=== PATIENT | male | born 1985 | race Caucasian/White ===

== ENCOUNTER 2020-04-20 19:34 | Inpatient (IN) | payer OTHER, SELFPAY ==
[~2020-04-20] VITALS: Ht 172.7 cm; Wt 90.7 kg
--- NOTE | 2020-04-20 19:45 | NUR ---
Patient to ER bed 8 to gown for evaluation. Side rails up.
[2020-04-20 19:48] VITALS: BP_SYST 99
[2020-04-20] MEDS ORDERED: IBUPROFEN 800 MG TABLET PO ONE (20:00)
[2020-04-20] MEDS ORDERED: NS 1000 ML IV.SOLN IV ONE (20:00)
[2020-04-20] MEDS ORDERED: VANCOMYCIN HCL 1,000 MG in D5W 250 ML IV ONE (20:00)
[2020-04-20] MEDS ORDERED: PIPERACILLIN/TAZO 3.38 GM in D5W 50 ML IV ONE (20:00)
--- NOTE | 2020-04-20 20:00 | NUR ---
Dr. Salazar bedside for pt eval
--- NOTE | 2020-04-20 20:10 | NUR ---
Pt BIB family to ED seeking evaluation of tachycardia today. The patient reports he had dysuria and hematuria since yesterday and took his girlfriend's UTI medications. The patient reportedly took 2 100mg tabs of Macrobid before feeling heart palpitations. Otherwise, denies fever, chills, chest pain, shortness of breath, or any other complaints
[2020-04-20 20:11] LABS: BASOPHILS % (AUTO) 0.2 % (0.0-2.0); EOSINOPHILS # (AUTO) 0.1 K/uL (0.0-0.4); EOSINOPHILS % (AUTO) 1.2 % (0.0-4.0); HEMATOCRIT 45.3 % (36-54); HEMOGLOBIN 15.5 g/dL (14.0-18.0); LYMPHOCYTES # (AUTO) 2.4 K/uL (1.0-5.5); LYMPHOCYTES % (AUTO) 19.4 % (20.5-51.5); MEAN CORPUSCULAR HEMOGLOBIN 31 pg (27-31); MEAN CORPUSCULAR HGB CONC 34 % (32-36); MEAN CORPUSCULAR VOLUME 90 fL (79.0-98.0); MONOCYTES # (AUTO) 0.2 K/uL (0.0-1.0); MONOCYTES % (AUTO) 1.8 % (1.7-9.3); NEUTROPHILS # (AUTO) 9.4 K/uL (1.8-7.7); NEUTROPHILS % (AUTO) 77.4 % (40.0-70.0); PLATELET COUNT (AUTO) 155 K/uL (130-430); RED BLOOD CELL COUNT(AUTO) 5.01 MIL/uL (4.2-6.2); RED CELL DISTRIBUTION WIDTH 12.7 % (9.0-15.0); WHITE BLOOD COUNT (AUTO) 12.1 K/uL (4.8-10.8)
[2020-04-20 20:24] LABS: CALCIUM 8.6 mg/dL (8.4-11.0); CREATININE 1.76 mg/dL (0.55-1.30); POTASSIUM 3.8 mmol/L (3.5-5.1)
[2020-04-20] MEDS ORDERED: PIPERACILLIN/TAZOBACTAM 3.375 GM/VIAL (ZOSYN) IV ONE (20:24)
[2020-04-20 20:30] LABS: ALBUMIN 4.3 g/dL (3.4-4.8); TOTAL BILIRUBIN 1.2 mg/dL (0.0-1.0)
[2020-04-20] MEDS ORDERED: VANCOMYCIN HCL 1000 MG/VIAL IV ONE (20:33)
[2020-04-20 20:34] LABS: PROTHROMBIN TIME 10.4 SECS (9.5-12.5)
[2020-04-20 21:01] LABS: BILIRUBIN,URINE NEGATIVE (NEGATIVE); BLOOD, URINE 2+ (NEGATIVE); COLOR,URINE YELLOW (YELLOW); GLUCOSE,URINE NEGATIVE (NEGATIVE); KETONES,URINE NEGATIVE (NEGATIVE); LEUKOCYTE ESTERASE ,URINE 2+ (NEGATIVE); NITRITE, URINE NEGATIVE (NEGATIVE); PROTEIN URINE TRACE (NEGATIVE); UROBILINOGEN,URINE 0.2 (0.2-1.0)
--- NOTE | 2020-04-20 21:10 | NUR ---
updated pt's family in waiting area outside, Pt remains trending towards less and less tachycardic
[2020-04-20 21:22] LABS: CLARITY/URINE SLIGHTLY HAZY (CLEAR)
[2020-04-20 21:29] LABS: BACTERIA,URINE FEW /HPF (None Seen); WBC,URINE 20-50 /HPF (0-3)
--- NOTE | 2020-04-20 22:00 | NUR ---
Dr. Salazar bedside once again for pt update
[2020-04-20] MEDS ORDERED: LORazepam 2 MG/ML VIAL IVP PRN (23:45)
[2020-04-20] MEDS ORDERED: ONDANSETRON HCL 4 MG/2 ML VIAL IVP PRN (23:45)
--- NOTE | 2020-04-20 23:50 | NUR ---
ADMIT NOTE Received pt from ER to the floor with a diagnosis of SEPSIS. Admission process initiated. patient oriented to pain management, safety and call light-teach back done.
--- NOTE | 2020-04-20 23:50 | NUR ---
Patient will be admitted to care of Dr. Palomares. Admitted to Tele unit. Will go to room 121. Belongings list completed. Complete and up to date summary report printed. SBAR report to be given at bedside with opportunity for questions.
--- NOTE | 2020-04-20 23:50 | NUR ---
Transfer to TELE via ACLS protocol. Licensed nurse present. IV present no signs or symptoms of infiltration.
[2020-04-21] VITALS: BP_SYST 101
[2020-04-21] MEDS ORDERED: HYDROcodone/ACETAMIN 5-325 MG TAB (NORCO/ VICODIN) PO PRN
[2020-04-21] MEDS ORDERED: ACETAMINOPHEN 325 MG TABLET PO PRN
[2020-04-21] MEDS ORDERED: NALOXONE HCL 0.4 MG/ML AMP (NARCAN) IVP PRN
--- NOTE | 2020-04-21 | NUR ---
OPENING NOTE PATIENT AOX4. NO SIGNS OF RESPIRATORY DISTRESS AND DISCOMFORT NOTED. DENIES PAIN AND DISCOMFORT. ON ROOM AIR, TOLERATING WELL. IVF INFUSING WELL. CALL LIGHT WITHIN REACH. PATIENT WAS EDUCATED TO USE CALL LIGHT WHEN ASSISTANCE IS NEEDED, PATIENT ABLE TO VERBALIZED UNDERSTANDING. BED LOCKED AND IN LOWEST POSITION. SAFETY PRECAUTIONS IN PLACE. WILL CONTINUE TO MONITOR PATIENT
[2020-04-21] MEDS ORDERED: FLU VACC QS2020-21 (6 mos & up) 0.5 ML/SYRINGE I.M. PRN (00:15)
[2020-04-21] MEDS: NACL 0.9% 1,000 ML IV SCH ×4 (00:17→18:12)
[2020-04-21] MEDS ORDERED: PIPERACILLIN/TAZOBACTAM 3.375 GM/VIAL (ZOSYN) IV ONE (00:44)
[2020-04-21] MEDS ORDERED: cefTRIAXone 1 GM VIAL ONE (00:45)
--- NOTE | 2020-04-21 02:03 | NUR ---
RN ROUNDS PATIENT ASLEEP AT THIS TIME. NO SIGNS OF RESPIRATORY DISTRESS AND DISCOMFORT NOTED. BREATHING EVEN AND UNLABORED. IVF INFUSING WELL. CALL LIGHT WITHIN REACH. SAFETY PRECAUTIONS IN PLACE. WILL CONTINUE TO MONITOR PATIENT.
[2020-04-21] MEDS: PIPERACILLIN/TAZO 3.375/DEX-IS 50 ML IV SCH ×5 (05:17→23:48)
--- NOTE | 2020-04-21 05:56 | NUR ---
DR. GABRIEL GAN MD MADE AWARE OF PATIENTS TEMP OF 99.4. DR. RIOS VERBALIZED TO GIVE TYLENOL PER ORDER.
--- NOTE | 2020-04-21 06:43 | NUR ---
CLOSING NOTE PATIENT ASLEEP, NO SIGNS OF RESPIRATORY DISTRESS AND DISCOMFORT NOTED. BREATHING EVEN AND UNLABORED. ON ROOM AIR TOLERATING WELL. IVF INFUSING WELL. CALL LIGHT WITHIN REACH. BED LOCKED AND IN LOWEST POSITION. BED ALARM ON. SIDE RAILS UP. SAFETY PRECAUTION IN PLACE. ALL NEEDS MET THROUGHOUT THE SHIFT. WILL CONTINUE TO MONITOR PATIENT UNTIL ENDORSE TO ONCOMING SHIFT NURSE FOR CONTINUITY OF CARE.
[2020-04-21 07:30] LABS: BASOPHILS % (AUTO) 0.1 % (0.0-2.0); EOSINOPHILS # (AUTO) 0.1 K/uL (0.0-0.4); EOSINOPHILS % (AUTO) 0.5 % (0.0-4.0); HEMATOCRIT 40.9 % (36-54); HEMOGLOBIN 13.8 g/dL (14.0-18.0); LYMPHOCYTES # (AUTO) 0.6 K/uL (1.0-5.5); LYMPHOCYTES % (AUTO) 4.4 % (20.5-51.5); MEAN CORPUSCULAR HEMOGLOBIN 31 pg (27-31); MEAN CORPUSCULAR HGB CONC 34 % (32-36); MEAN CORPUSCULAR VOLUME 91 fL (79.0-98.0); MONOCYTES # (AUTO) 0.4 K/uL (0.0-1.0); MONOCYTES % (AUTO) 3.3 % (1.7-9.3); NEUTROPHILS # (AUTO) 12.1 K/uL (1.8-7.7); NEUTROPHILS % (AUTO) 91.7 % (40.0-70.0); PLATELET COUNT (AUTO) 121 K/uL (130-430); RED BLOOD CELL COUNT(AUTO) 4.48 MIL/uL (4.2-6.2); RED CELL DISTRIBUTION WIDTH 13.2 % (9.0-15.0); WHITE BLOOD COUNT (AUTO) 13.2 K/uL (4.8-10.8)
[2020-04-21 07:57] VITALS: BP_SYST 116
[2020-04-21 08:10] LABS: ALBUMIN 3.4 g/dL (3.4-4.8); CALCIUM 8.2 mg/dL (8.4-11.0); CREATININE 1.18 mg/dL (0.55-1.30); POTASSIUM 4.2 mmol/L (3.5-5.1); TOTAL BILIRUBIN 1.4 mg/dL (0.0-1.0)
[2020-04-21] MEDS: ACETAMINOPHEN 325 MG TABLET PO PRN ×2 (11:52→18:03)
--- NOTE | 2020-04-21 12:24 | NUR ---
INFECTIOUS CONSULT SPOKE TO DR RYAN AND MADE AWARE OF CONSULT RE-SEPSIS.
[2020-04-21] MEDS ORDERED: GENTAMICIN SULFATE 300 MG in NS 100 ML IV ONE (12:30)
[2020-04-21 12:33] VITALS: BP_SYST 134
[2020-04-21 16:16] VITALS: BP_SYST 103
--- NOTE | 2020-04-21 19:52 | NUR ---
NOTES, PT BP WNL, PT HAS ON AND OFF TEMPERATURE AND EPISODES OF SHIVERING, GIVEN TYLENOL PRN, ALL ANTIBIOTICS AND MEDICATIONS GIVEN ORDERED. DR RYAN SEEN AND SPOKE WITH PT. CHECKED WITH DR FINNEY IF HE WANT PLACE PT ON PUI PT IS EXHIBITING SYMPTOMS OF COVID PER ASSESSMENT, MD SAID NO NEED. ENDORSED TO NIGHT LILIANA CALI.
[2020-04-21 20:00] VITALS: BP_SYST 110
--- NOTE | 2020-04-21 20:00 | NUR ---
Opening notes Pt AAOx4, VSS, afebrile. IVF infusing at ordered rate R. wrist 20g no s/s infiltration. Call light within reach. Bed low, locked, siderails up x2. To monitor.
--- NOTE | 2020-04-21 23:50 | NUR ---
Rounds Pt asleep, easily awakens, VSS, afebrile. IVF infusing at ordered rate R. wrist clear and patent. Encouraged pt to call for assistance, pt agreeable. Call light within reach. To monitor.
[2020-04-22 00:05] VITALS: BP_SYST 107
[2020-04-22] MEDS: NACL 0.9% 1,000 ML IV SCH ×4 (01:12→23:47)
[2020-04-22] MEDS: ACETAMINOPHEN 325 MG TABLET PO PRN ×3 (01:16→17:40)
--- NOTE | 2020-04-22 01:16 | NUR ---
Headache Pt awake, c/o headache. Medicated w/ Tylenol 650mg as needed. Call light within reach. Will continue to monitor.
[2020-04-22] MEDS: PIPERACILLIN/TAZO 3.375/DEX-IS 50 ML IV SCH ×4 (05:27→23:48)
--- NOTE | 2020-04-22 05:28 | NUR ---
Closing notes Pt asleep, easily awakens, no s/s distress noted. IVF/antibiotic infusing at ordered rate R. wrist no s/s infiltration. CAll light within reach. Bed low, locked, siderails up 2. To endorse to AM nurse.
[2020-04-22 08:20] VITALS: BP_SYST 117
--- NOTE | 2020-04-22 09:25 | NUR ---
alert, oriented, c/o headache. insists to go home, despite the fact WBC (04/21) still 13.2. this is the second tylenol given, first at 0100 this am. advised to wait for the attending to come, and discuss with him.
[2020-04-22] MEDS ORDERED: GENTAMICIN SULFATE 200 MG in NS 100 ML IV ONE (11:00)
--- NOTE | 2020-04-22 18:22 | NUR ---
" felt much better", Gentamycin one dose only , given. the only complaint this shift, headache, tylenol 650mg po given x 2. No more dysuria, no more flank pain, per patient report.
--- NOTE | 2020-04-22 19:30 | NUR ---
CHANGE OF SHIFT; endorsed by day shift, no acute distress. call light within reach.
--- NOTE | 2020-04-22 20:30 | NUR ---
NOTES: pt. ambulated to the restroom when checked. pt. c/o dry cough since this am, with headache. VS checked, afebrile. IV NS @ 150 cc/hr. via rt. wrist area, another IV lock on left antecubital. noted with loose stool per pt. moves all extremities. will call MD for cough syrup. call light within reach.
[2020-04-22 21:00] VITALS: BP_SYST 118
--- NOTE | 2020-04-22 22:17 | NUR ---
NOTES: Dr. Rae called back, new home sales consultant for Dr. Mclain, cough syrup ordered prn.
--- NOTE | 2020-04-22 23:45 | NUR ---
NOTES: checked pt. and sleeping already, awakened but does not want cough syrup for now. IV antibiotic due started, continuous IV NS @ 150 cc/hr.
[2020-04-22] MEDS: guaiFENesin/DEXTROMETHORPHAN 10 ML UDC PO PRN (23:48)
[2020-04-23] VITALS: BP_SYST 113
--- NOTE | 2020-04-23 02:30 | NUR ---
NOTEs; pt. remain sleeping, no distress. IVF continuous.
--- NOTE | 2020-04-23 04:30 | NUR ---
NOTES: condition unchanged, continue to monitor.
--- NOTE | 2020-04-23 06:15 | NUR ---
NOTES: still asleep when checked. IVF continuous.
[2020-04-23] MEDS: PIPERACILLIN/TAZO 3.375/DEX-IS 50 ML IV SCH ×3 (06:21→17:30)
[2020-04-23] MEDS: NACL 0.9% 1,000 ML IV SCH (06:24)
--- NOTE | 2020-04-23 06:46 | NUR ---
CLOSING NOTES; pt. went back to sleep, IVF patent. needs attended. no complaints but still noted with dry cough. for further assist. call light within reach. pt. ambulates to the restroom.
[2020-04-23 06:51] LABS: BASOPHILS % (AUTO) 0.6 % (0.0-2.0); EOSINOPHILS # (AUTO) 0.1 K/uL (0.0-0.4); EOSINOPHILS % (AUTO) 2.4 % (0.0-4.0); LYMPHOCYTES # (AUTO) 0.9 K/uL (1.0-5.5); LYMPHOCYTES % (AUTO) 19.5 % (20.5-51.5); MEAN CORPUSCULAR HEMOGLOBIN 31 pg (27-31); MEAN CORPUSCULAR HGB CONC 34 % (32-36); MEAN CORPUSCULAR VOLUME 92 fL (79.0-98.0); MONOCYTES # (AUTO) 0.5 K/uL (0.0-1.0); MONOCYTES % (AUTO) 10.5 % (1.7-9.3); NEUTROPHILS # (AUTO) 3.2 K/uL (1.8-7.7); PLATELET COUNT (AUTO) 131 K/uL (130-430); RED BLOOD CELL COUNT(AUTO) 4.16 MIL/uL (4.2-6.2); RED CELL DISTRIBUTION WIDTH 12.9 % (9.0-15.0); WHITE BLOOD COUNT (AUTO) 4.7 K/uL (4.8-10.8)
[2020-04-23 07:15] LABS: CALCIUM 8.4 mg/dL (8.4-11.0); CREATININE 1.2 mg/dL (0.55-1.30); POTASSIUM 3.8 mmol/L (3.5-5.1); TOTAL BILIRUBIN 0.5 mg/dL (0.0-1.0)
[2020-04-23 08:00] VITALS: BP_SYST 126
--- NOTE | 2020-04-23 08:00 | NUR ---
A/OX4,AFEBRILE,VSS,IVF CONTINUE INFUSING,NEEDS ATTENDED,CALL LIGHT & PERSONAL ITEMS WITHIN PT REACH SAFETY MAINTAINED.
--- NOTE | 2020-04-23 09:00 | NUR ---
PT C/O COUGH,GIVE COUGH MEDS PRN,NEEDS ATTENDED,HOURLY ROUNDS MADE,SAFETY MAITNAINED.
[2020-04-23] MEDS: guaiFENesin/DEXTROMETHORPHAN 10 ML UDC PO PRN (09:03)
[2020-04-23 12:00] VITALS: BP_SYST 118
--- NOTE | 2020-04-23 12:00 | NUR ---
CONTINUE IV ANTIBIOITC DUE,PT CONCERNS ABOUT HE STARTING COUGHING,COVID TEST &CXR REVIEWED BOTH NEGATIVE,OFFERED FLU SHOT AND PT REFUSED FLU SHOT FOR NOW.
--- NOTE | 2020-04-23 15:00 | NUR ---
RECEIVED LAB CRITICAL RESULT REGARDING BLOOD CULTURE + E COLI /MDRO, CALLED AND NOTIFIED.
[2020-04-23 16:00] VITALS: BP_SYST 134
--- NOTE | 2020-04-23 16:12 | NUR ---
Discharge Planning: DCP faxed [facility] ([phone]) for IV meds and nurse for teaching. DCP to follow up Addendum: 04/23/20 at 1658 by Alexandra Muñoz DP DCP followed up with [facility] ([phone]) IV meds will be delivered tomorrow morning, nurse will teach patient. Addendum: 04/23/20 at 1704 by Alexandra Muñoz DP [place] made nurse aware [facility] ([phone]) IV meds will be delivered tomorrow morning. DCP made nurse aware to call doctor for DC order.
--- NOTE | 2020-04-23 18:00 | NUR ---
GIVE ZOSYN IV ANTIBIOTIC DUE THEN D/C PT HOME PER DR MURCIA.HOME HEALTH ARRANGED PER GRIEVANCE AND APPEALS SPECIALIST,LEAVE IV ACCESS IN BOTH ARMS FOR FURTHER IV ANTIBIOTIC USE.D/C INSTRUCTION GIVEN AND EXPLAINED TO PT.LEAVING VIA W/C.
--- NOTE | 2020-04-24 16:09 | NUR ---
SS NOTES/DISCHARGE FOLLOW UP CALL: SUSTAINABILITY ENGINEER phoned pt @ [phone]. Per pt, he is doing well and he understood all the discharge instructions that were given. Pt is yet to make an appointment with PCP. Pt also met with home health for IV abx already. No further SS call needed.
== END 2020-04-23 19:00 | disposition home health service (06) | DRG 871 ==
LOC: SED 19:34 → STU 23:04 → SMU 04-22 14:37
PROVIDERS: ADMIT Internal Medicine Hospice and Palliative Medicine; ATTEND Internal Medicine Hospice and Palliative Medicine
DX: A41.50 Gram-negative sepsis, unspecified (principal); N17.0 Acute kidney failure with tubular necrosis; N12 Tubulo-interstitial nephritis, not specified as acute or chronic; N30.91 Cystitis, unspecified with hematuria; Z20.828 Contact with and (suspected) exposure to other viral communicable diseases; N19 Unspecified kidney failure
CPT/HCPCS: 36415; 71045; 76770; 80053; 81000-TC; 83605; 83874; 84484; 85025; 85610-TC; 87040-TC; 87086; 93005; 96365; 96368; 99291; 99292; G0378; J0696; J1580; J2405; J2543; J3370; J7030; J7040; J7060